=== PATIENT | female | born 1945 | race Caucasian/White ===

== ENCOUNTER 2017-05-01 15:32 | Emergency (ER) | payer OTHER ==
[~2017-05-01] VITALS: Ht 167.6 cm; Wt 71.3 kg
[2017-05-01 15:43] VITALS: Ht 167.6 cm; Wt 71.3 kg
--- NOTE | 2017-05-01 16:12 | EMERGENCY ROOM VISIT NOTE ---
ED Visit Note First contact with patient: 15:49 I did evaluate and examine this patient myself. I did guide management for the patient. I agree with the APC's assessment as discussed. Please see the APC's dictation for further details. The patient has a laceration above the right brow. She denies any significant headache. I did review the CT scan of her orbits. She declines tetanus immunization and states that she does not get immunizations for tetanus. She does have an obvious lens dislocation on examination and is only able to distinguish light with the right eye. She has increased IOP in that eye as well. Dr. Guerra of ophthalmology was consulted. He did see the patient in the emergency department and recommended transfer to a tertiary care facility for further care. The patient was transferred to [facility].
[2017-05-01] MEDS ORDERED: PROPARACAINE HCL 0.5% OP SOLN 15 ML BTL OP STA (16:16)
[2017-05-01] MEDS ORDERED: LIDOCAINE/EPINEPH/TETRACAINE 1 EA SYR EXT STA (16:16)
[2017-05-01] MEDS ORDERED: DIPHTHERIA/TETANUS/PERTUSSIS 0.5 ML SYR/VIAL IM. ONE (16:30)
[2017-05-01] MEDS ORDERED: XYLOCAINE 1%/SOD BICARB 20 ML VIAL INFIL ONE (16:30)
--- NOTE | 2017-05-01 17:02 | DIAGNOSTIC IMAGING REPORT ---
CT orbits ORBITS/SELLA/TEMP WITHOUT CLINICAL HISTORY: EVAL TRAUMA/FRACTURE trauma. Pain. TECHNIQUE: Transaxial acquisition of multi axial reformatted images COMPARISON STUDY: None FINDINGS: Mild right preorbital soft tissue edema. All major osseous structures are intact. Orbital margins are intact. The retroseptal structures are symmetric. Bulges symmetric. All major sinuses are intact. Orbital floors and orbital margins show no evidence for disruption. IMPRESSION: Mild soft tissue edema anterior to the right orbit. Otherwise negative study. No acute bony abnormality. Electronically signed by: Donny Marques M.D. 05/01/2017 5:00 PM Dictated Date/Time: 05/01/2017 4:57 PM
[2017-05-01] MEDS ORDERED: AcetaZOLAMIDE 250 MG TAB PO STA (18:37)
[2017-05-01] MEDS ORDERED: BRIMONIDINE TART 0.2% OP SOLN PER DROP CHARGE OPR STA (18:37)
[2017-05-01] MEDS ORDERED: TIMOLOL MALEATE 0.5% OP SOLN 5 ML BTL OPR STA (18:37)
--- NOTE | 2017-05-01 19:12 | EMERGENCY ROOM VISIT NOTE ---
ED Visit Note First contact with patient: 15:49 CHIEF COMPLAINT: Eyebrow laceration History of present illness: Patient is an otherwise healthy 72-year-old white female who presents emergency department for evaluation of a laceration above her right eye. She was playing baseball with her grandson, and had her back turned while he was batting. He hit the ball, and she turned, the ball struck her in the right eye, causing the laceration described below. She notes blurry vision in her right eye. She states that it feels like she has a "glare" over her right eye. She wears reading glasses only, have Lasik vision correction performed about 10 years ago. She denies any headache, lightheadedness or dizziness. There was no loss of consciousness. She has had ice on her face since the injury. She rates her discomfort a 2/10. REVIEW OF SYSTEMS: Review of systems as per HPI. All other systems reviewed were negative. 10 systems reviewed. PMH: Electronic medical records are reviewed and summarized as above/below. See Problem List. Her tetanus is not up-to-date. SOCIAL HISTORY: Patient lives at home with her . She does not smoke or drink alcohol. PHYSICAL EXAM: Vital Signs: Reviewed Nurse's notes. CONSTITUTIONAL: Patient is a pleasant well-appearing 72-year-old white female who is awake and alert and in no acute distress. VISUAL ACUITY: 20/25 in the left eye, patient is completely unable to view the Snellen chart through the right eye. EYES: Right pupil is fixed and dilated. Left pupil is round, reactive to light. EOMs are intact. She has slight tenderness over the superior orbital rim. Intraocular pressure averaged 17.3 in the left eye and 54.8 in the right eye. Under slit-lamp exam, patient did have evidence for a small, linear hyphema. No corneal uptake of fluorescein. EARS: Tympanic membranes intact, not inflamed, have normal contour. External canals clear. MOUTH: Mucous membranes moist, no lesions, tongue and gums appear normal. THROAT: No pharyngeal injection, exudates, or tonsillar hypertrophy. Airway is patent. INTEGUMENTARY: The patient has a 2 cm laceration through the lateral right eyebrow. EMERGENCY DEPARTMENT COURSE: The patient was seen and evaluated as above. Tetanus was updated. She declined pain medication. Slit exam was performed. Orbital CT was obtained, with no evidence for fracture. Wound was repaired. Given the ocular injury, consultation was placed with Dr. Napier of ophthalmology who evaluated the patient. 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 He felt that she would require urgent surgical intervention, and has recommended transfer to a tertiary care center. Patient has requested [facility] and [place]. Per Dr. Napier's instructions, patient was given Diamox 250 mg orally now and then every 8 hours, Timolol 0.5% one drop now and then every 12 hours and Brimonidine 0.2% one drop now and then every 8 hours. He also suggested Lumigan 1 drop now and then every 12 hours, but this medication is not available at our facility. Consent to transfer was obtained. The patient will go by private vehicle. All questions were answered, and the patient was discharged with her in good condition. PROCEDURE NOTE: The wound was anesthetized with LET gel for over 30 minutes. The affected area was cleaned with Betadine and irrigated with saline. The laceration was explored to its base. There was no foreign body in the wound. The skin was closed with 6, 6-0 nylon interrupted sutures. Bacitracin was applied. CT orbits ORBITS/SELLA/TEMP WITHOUT CLINICAL HISTORY: EVAL TRAUMA/FRACTURE trauma. Pain. TECHNIQUE: Transaxial acquisition of multi axial reformatted images COMPARISON STUDY: None FINDINGS: Mild right preorbital soft tissue edema. All major osseous structures are intact. Orbital margins are intact. The retroseptal structures are symmetric. Bulges symmetric. All major sinuses are intact. Orbital floors and orbital margins show no evidence for disruption. IMPRESSION: Mild soft tissue edema anterior to the right orbit. Otherwise negative study. No acute bony abnormality. Problem List Medical Problems: (1) Kidney stones Status: Resolved Current/Historical Medications No Active Prescriptions or Reported Meds Allergies Coded Allergies: Nitrofurantoin (Verified Allergy, Mild, ITCHY, 05/01/17) Uncoded Allergies: PENICILLIN (Allergy, Severe, HIVES "EXTERNAL AND INTERNAL", 05/01/17) Vital Signs Date Time Temp Pulse Resp B/P (MAP) Pulse Ox O2 Delivery O2 Flow Rate FiO2 05/01/17 19:53 78 18 153/85 98 Room Air 05/01/17 19:53 37.1 78 18 153/85 98 05/01/17 18:53 78 18 153/85 98 05/01/17 18:06 69 16 145/84 94 05/01/17 15:43 37.1 97 20 152/72 96 Room Air Medications Administered Medications (Trade) Dose Ordered Sig/Noel Route Start Time Stop Time Status Last Admin Dose Admin Diphtheria/ Pertussis/Tetanus Vacc (Adacel Inj) 0.5 ml ONCE ONCE IM. 05/01/17 16:30 05/01/17 16:31 DC 05/01/17 16:42 0.5 ML Tetracaine/ Epinephrine/ Lidocaine (L.e.t. Gel 4%/ 1:100/0.5%) 1 ea UD STAT EXT 05/01/17 16:16 05/01/17 16:18 DC 05/01/17 16:40 1 EA Acetazolamide (Diamox Tab) 250 mg NOW STAT PO 05/01/17 18:37 05/01/17 18:41 DC 05/01/17 19:16 250 MG Timolol Maleate (Timoptic 0.5% Oph Soln) 1 drops NOW STAT OPR 05/01/17 18:37 05/01/17 18:41 DC 05/01/17 19:16 1 DROPS Brimonidine Tartrate (Alphagan 0.2% Soln) 1 drops NOW ONCE OPR 05/01/17 19:15 05/01/17 19:16 DC 05/01/17 19:16 1 DROPS Departure Information Impression Primary Impression: Traumatic dislocation of lens Additional Impressions: Elevated IOP Eyebrow laceration Dispostion Transfer Acute Care Facility Prescriptions No Active Prescriptions or Reported Meds Referrals No Doctor, Assigned (PCP) Patient Instructions [facility] Additional Instructions Go directly to the emergency department at [facility] in [place] for evaluation. Nothing to eat or drink. Problem Qualifiers
[2017-05-01] MEDS ORDERED: BRIMONIDINE TARTRATE 0.2% 5ML OPR ONE (19:15)
--- NOTE | 2017-05-01 19:24 | OPHTHALMOLOGY CONSULTATION ---
DATE OF CONSULTATION: 05/01/2017 CHIEF COMPLAINT: Right eye trauma. HISTORY OF PRESENT ILLNESS: The patient is a very pleasant 72-year-old woman who was struck above the right eye with a baseball earlier today. She presented to the Emergency Room and was evaluated and found to have a fixed dilated pupil on the right and a right brow laceration. Imaging did not reveal any fractures. However, the pressure check was 54 in the right eye. The patient reports significant loss of vision in the right eye. She denies any significant pain. She denies any double vision. PAST MEDICAL HISTORY: The patient had LASIK done in both eyes. She does not wear glasses except for reading. ALLERGIES: PENICILLIN. PHYSICAL EXAMINATION: Visual acuity on a near card without correction was 20/800 in the right eye and 20/50 in the left. Pupillary exam showed a fixed dilated pupil on the right. The left pupil reacted normally. There was perhaps a mild afferent pupillary defect by reverse on the right side. Versions were normal. There was a brow laceration which had been sutured prior to my arrival. The lids otherwise are mildly edematous on the right. The cornea had mild diffuse edema. At the slit lamp the anterior chamber was completely filled with the crystalline lens. The iris was stretched around the equator of the lens and portions of the iris were behind the lens and portions of the iris were flat against the cornea peripherally. Fundus examination showed a small amount of vitreous hemorrhage. The retinal details were somewhat blurry due to the anterior segment pathology but the retinal periphery appeared unremarkable. The optic nerve had a cup to disc ratio of 0.2 on the right. The remainder of the exam was normal including no significant subconjunctival hemorrhage with a clear sclerae. In the left eye, there was mild nuclear sclerosis and the remainder of the exam was unremarkable. IMPRESSION: Ms. Orosco has a traumatic dislocation of her lens into the anterior chamber. This movement of the lens is causing obstruction of the normal angle architecture and resulting in high pressure. It is going to be very difficult to control this pressure without surgical correction of the displaced lens. Most likely this is going to require a vitrectomy and lensectomy. I have recommended transferring the patient to a fully staffed eye center such as [facility] in [place] or [facility] where they have both anterior segment and retinal specialists available to cooperate for her urgent surgical intervention. In the meantime, I have recommended a barrage of medications in order to try and temporarily lower her pressure in anticipation of surgery. I would recommend Diamox 250 mg every 12 hours. In addition, I have recommended timolol 0.5% drops 1 drop every 12 hours, brimonidine 0.2% drops every 8 hours, and Lumigan drops every 12 hours. Please call [phone] with any questions. [facility]
[2017-05-01 19:53] VITALS: BP 153/85; PULSE 78; TEMP 37.1; O2SAT 98
== END 2017-05-01 19:54 | disposition short-term general hospital (02) ==
LOC: C.EDB 15:33 → C.EDD 19:54
DX: S05.8X1A Other injuries of right eye and orbit, initial encounter (principal); H40.001 Preglaucoma, unspecified, right eye; S01.111A Laceration without foreign body of right eyelid and periocular area, initial encounter; W21.03XA Struck by baseball, initial encounter; Z23 Encounter for immunization

== ENCOUNTER 2017-12-29 13:59 | Emergency (ER) | payer OTHER ==
[~2017-12-29] VITALS: Ht 167.6 cm; Wt 70.0 kg
[2017-12-29 14:12] VITALS: Ht 167.6 cm; Wt 70.0 kg
[2017-12-29] MEDS ORDERED: SODIUM CHLORIDE 0.9% 1000ML 1,000 ML IV STA (14:31)
[2017-12-29] MEDS ORDERED: ONDANSETRON INJ 2 MG/ML 2 ML VIAL IV PRN (14:45)
[2017-12-29] MEDS ORDERED: FENTANYL CITRATE INJ 50 MCG/1 ML 2 ML VIAL IV PRN (14:45)
[2017-12-29 14:56] LABS: BASO % 0.1 %; BASO ABS # 0.01 K/uL (0-0.2); EOS % 0.5 %; EOS ABS # 0.04 K/uL (0-0.5); HEMATOCRIT 39.5 % (37-47); HEMOGLOBIN 13.6 g/dL (12.0-16.0); IG# 0.01 K/uL (0.00-0.02); LYMPH % 8.3 %; LYMPH ABS # 0.61 K/uL (1.2-3.4); MEAN CELL VOLUME 89.8 fL (80-100); MEAN CORPUSCULAR HEMOGLOBIN 30.9 pg (25-34); MEAN CORPUSCULAR HGB CONC 34.4 g/dl (32-36); MEAN PLATELET VOLUME 9.4 fL (7.4-10.4); MONO % 8.1 %; NEUT % 82.9 %; NEUT ABS # 6.11 K/uL (1.4-6.5); PLATELET COUNT 157 K/uL (130-400); RED CELL DISTRIBUTION WIDTH CV 13.3 % (11.5-14.5); RED CELL DISTRIBUTION WIDTH SD 43.9 fL (36.4-46.3); WHITE BLOOD COUNT 7.38 K/uL (4.8-10.8)
[2017-12-29] MEDS ORDERED: OPTIRAY 320 IV PRN (15:00)
--- NOTE | 2017-12-29 15:01 | EMERGENCY ROOM VISIT NOTE ---
ED Visit Note First contact with patient: 14:20 CHIEF COMPLAINT: Right flank pain HISTORY OF PRESENTING ILLNESS: This is a 72-year-old female who presents to the emergency department with complaint of right flank pain for the past 5 days. She states that she saw her primary care provider last week on [place] when her symptoms had started and they noted blood in her urine. She states that they suspected she has a kidney stone, they encouraged her to take Aleve for the pain and to drink lots of fluids to hopefully help pass the stone. She states that her pain and symptoms have been getting progressively worse, she has been having severe nausea and vomiting since yesterday and today she is vomiting bright yellow bile. She denies any fevers but states she has had some chills today as well. She reports a history of a kidney stone 40 years ago but has not had any ongoing issues of kidney stones recently. She states that the pain is intermittent and starts in her right middle back and wraps around to the flank and right lower quadrant abdomen. Today she has also developed some dysuria. She denies any headaches, neck pain, chest pain, shortness of breath, dizziness or syncope, bloody or black stools, or rash. REVIEW OF SYSTEMS: A complete 10 point review of systems was reviewed with the patient with pertinent positives and negatives as per history of present illness. All else were negative. PAST MEDICAL HISTORY: Reviewed in chart. SOCIAL HISTORY: Lives at home with her significant other. She denies tobacco use, alcohol use, or recreational drug use. ALLERGIES: Reviewed in chart. PHYSICAL EXAM: CONSTITUTIONAL: Pleasant and cooperative. No acute distress. Mildly dehydrated , but otherwise well appearing and well nourished. HEENT: Normocephalic, atraumatic. Pupils equal, round and reactive to light, EOMI. TMs normal. Pharynx normal. Tacky mucous membranes. NECK: Supple, full active range of motion without discomfort. RESPIRATORY: Clear to auscultation bilaterally with no wheezing, crackles, rhonchi or stridor. Equal expansion bilaterally. CARDIOVASCULAR: Regular rate and rhythm with no murmurs, rubs or gallops. Normal peripheral perfusion. No edema. GASTROINTESTINAL: Soft, moderately tender in the right flank and right lower quadrant, nondistended. No rebound tenderness or guarding. Positive right CVA tenderness. No palpable masses or HSM. Bowel sounds present in all quadrants. MUSCULOSKELETAL: Full range of motion of all joints without discomfort. INTEGUMENTARY: No rash or other significant dermatologic conditions noted. NEUROLOGIC: Alert and oriented X 4 with normal affect. Normal strength and sensation in all 4 extremities. No focal neurologic deficits noted. Normal speech. Normal gait observed. ED COURSE AND MEDICAL DECISION MAKING: CC: Patient presenting with complaint of right flank pain, nausea and vomiting, hematuria DIFFERENTIAL DIAGNOSIS: Includes, but not limited to ureteral stone, UTI, pyelonephritis, infected stone, small bowel obstruction, ileus, gastroenteritis , diverticulitis, appendicitis, cholecystitis, cholelithiasis, pancreatitis, dehydration, among others. INTERPRETATION OF LABS: No leukocytosis, no anemia, no significant electrolyte abnormalities, normal renal function, normal liver enzymes and lipase. UA shows blood, negative for infection. IMAGING: CT OF THE ABDOMEN AND PELVIS WITH CONTRAST CLINICAL HISTORY: Right-sided back pain. COMPARISON STUDY: None. TECHNIQUE: Following IV administration of 110 mL of Optiray-320, axial images of the abdomen and pelvis were obtained from the lung bases to the proximal femurs. Images were reviewed in the axial, sagittal, and coronal planes. IV contrast was administered without complication. A dose lowering technique was utilized adhering to the principles of ALARA. CT DOSE: 292.84 mGy.cm FINDINGS: Lung bases are clear. Incidental note is made of a 1.3 cm right hepatic lobe cyst. The spleen, adrenal glands and pancreas are unremarkable. There is no biliary or pancreatic ductal dilatation. There is no evidence for a bowel obstruction. Extensive left colon diverticulosis is noted without evidence for acute diverticulitis. The appendix is normal. There is no lymphadenopathy. Bilateral parapelvic cysts are noted. There is moderate renal cortical thinning. Note is made of a 4 mm calculus at the right ureterovesical junction with resultant right hydroureteronephrosis. The degree of hydronephrosis is difficult to assess given parapelvic cyst however is likely at least moderate in degree. Hyperdense densities within the left collecting system likely reflect excreted contrast. No suspicious osseous lesions are present. A 4.5 cm hypodense mass within the posterior aspect the uterine body is noted. IMPRESSION: 1. 4 mm right ureterovesical junction calculus with resultant right hydroureteronephrosis. Degree of hydronephrosis difficult to assess given parapelvic cysts however likely at least moderate. 2. Extensive colonic diverticulosis without evidence for acute diverticulitis. Normal appendix. 3. 4.5 cm hypodense posterior uterine mass which likely reflects a fibroid. However, a follow-up nonemergent pelvic ultrasound is recommended for confirmation. EKG: Shows normal sinus rhythm with a rate of 74 bpm, left axis deviation with nonspecific T wave changes in the anterior and lateral leads when compared to previous EKG of 10/21/1998 by my interpretation. MEDICATION RECONCILIATION: I attest that I have personally reviewed the patient 's current medication list. INITIAL VITAL SIGNS REVIEW: I reviewed the patient's initial vital signs and interpret them as follows: T: Afebrile; BP: Hypertensive; HR: Within normal limits; RR: Within normal limits; Pulse Ox: Within normal limits on room air. Blood pressure screening: The patient was found to have an elevated blood pressure and was referred to their primary doctor for recheck and further treatment. SUMMARY: Patient was evaluated at bedside, history and physical exam performed. Patient is alert and oriented, no acute distress, resting calmly in stretcher. Patient has right CVA tenderness and right lower abdominal tenderness to palpation. Patient reports that her pain is well controlled at this time. Orders were placed at bedside for labs, UA, IV fluids for hydration, IV fentanyl and Zofran for pain and nausea, CT abdomen/pelvis with IV contrast to evaluate for ureteral stone and other acute abdominal abnormalities. Patient discussed with Dr. Castellanos, who agrees with my assessment and plan. Labs and imaging reviewed as above, CT notable for 4 mm distal obstructing ureteral stone. I spoke on the phone with BRYANT Ndiaye with urology, who agrees to establish a follow-up appointment for the patient. Patient reassessed multiple times throughout ED stay, she reports that her pain has been well controlled, she denies any persistent nausea and has tolerated oral fluids. Patient was updated on all results and plan for discharge, encouraged her to keep her scheduled appointment with urology. Patient was also made aware of the uterine mass and need to follow up with her primary care provider. Rx for oxycodone, naproxen, Zofran, and Flomax sent to patient's pharmacy. Patient was given her first dose of Flomax and a urine straining kit in the ED. Patient was also given strict return precautions should her symptoms worsen, she verbalized understanding. Patient was discharged home in stable condition and ambulatory. Problem List Medical Problems: (1) Kidney stones Status: Resolved Current/Historical Medications Scheduled Naproxen (Naprosyn), 500 MG PO BID Ondasetron Odt (Zofran Odt), 4 MG SL Q6H Tamsulosin Hcl (Flomax), 0.4 MG PO DAILY Scheduled PRN Oxycodone Ir (Roxicodone Ir), 1-2 TAB PO Q6H PRN for Severe Pain Allergies Coded Allergies: Nitrofurantoin (Verified Allergy, Mild, ITCHY, 12/29/17) Uncoded Allergies: PENICILLIN (Allergy, Severe, HIVES "EXTERNAL AND INTERNAL", 05/01/17) Vital Signs Date Time Temp Pulse Resp B/P (MAP) Pulse Ox O2 Delivery O2 Flow Rate FiO2 12/29/17 16:59 86 18 151/87 100 Room Air 12/29/17 15:40 36.7 91 18 147/88 96 Room Air 12/29/17 15:09 74 12/29/17 14:12 36.5 80 16 147/90 98 Room Air Laboratory Results 12/29/17 14:46 Red Blood Count 4.40, Mean Corpuscular Volume 89.8, Mean Corpuscular Hemoglobin 30.9, Mean Corpuscular Hemoglobin Concent 34.4, Mean Platelet Volume 9.4, Neutrophils (%) (Auto) 82.9, Lymphocytes (%) (Auto) 8.3, Monocytes (%) (Auto) 8.1, Eosinophils (%) (Auto) 0.5, Basophils (%) (Auto) 0.1, Neutrophils # (Auto) 6.11, Lymphocytes # (Auto) 0.61, Monocytes # (Auto) 0.60, Eosinophils # (Auto) 0.04, Basophils # (Auto) 0.01 12/29/17 14:46 Test 12/29/17 14:45 12/29/17 14:46 Urine Color YELLOW Urine Appearance CLEAR (CLEAR) Urine pH 5.0 (4.5-7.5) Urine Specific Matthews 1.011 (1.000-1.030) Urine Protein NEG (NEG) Urine Glucose (UA) NEG (NEG) Urine Ketones TRACE (NEG) Urine Occult Blood 2+ (NEG) Urine Nitrite NEG (NEG) Urine Bilirubin NEG (NEG) Urine Urobilinogen NEG (NEG) Urine Leukocyte Esterase SMALL (NEG) Urine WBC (Auto) 5-10 /hpf (0-5) Urine RBC (Auto) 0-4 /hpf (0-4) Urine Hyaline Casts (Auto) 0 /lpf (0-5) Urine Epithelial Cells (Auto) >30 /lpf (0-5) Urine Bacteria (Auto) NEG (NEG) White Blood Count 7.38 K/uL (4.8-10.8) Red Blood Count 4.40 M/uL (4.2-5.4) Hemoglobin 13.6 g/dL (12.0-16.0) Hematocrit 39.5 % (37-47) Mean Corpuscular Volume 89.8 fL (80-100) Mean Corpuscular Hemoglobin 30.9 pg (25-34) Mean Corpuscular Hemoglobin Concent 34.4 g/dl (32-36) Platelet Count 157 K/uL (130-400) Mean Platelet Volume 9.4 fL (7.4-10.4) Neutrophils (%) (Auto) 82.9 % Lymphocytes (%) (Auto) 8.3 % Monocytes (%) (Auto) 8.1 % Eosinophils (%) (Auto) 0.5 % Basophils (%) (Auto) 0.1 % Neutrophils # (Auto) 6.11 K/uL (1.4-6.5) Lymphocytes # (Auto) 0.61 K/uL (1.2-3.4) Monocytes # (Auto) 0.60 K/uL (0.11-0.59) Eosinophils # (Auto) 0.04 K/uL (0-0.5) Basophils # (Auto) 0.01 K/uL (0-0.2) RDW Standard Deviation 43.9 fL (36.4-46.3) RDW Coefficient of Variation 13.3 % (11.5-14.5) Immature Granulocyte % (Auto) 0.1 % Immature Granulocyte # (Auto) 0.01 K/uL (0.00-0.02) Anion Gap 9.0 mmol/L (3-11) Est Creatinine Clear Calc Drug Dose 37.2 ml/min Estimated GFR () 49.6 Estimated GFR (Non- 42.8 BUN/Creatinine Ratio 16.2 (10-20) Calcium Level 9.2 mg/dl (8.5-10.1) Total Bilirubin 0.9 mg/dl (0.2-1) Direct Bilirubin 0.2 mg/dl (0-0.2) Aspartate Amino Transf (AST/SGOT) 9 U/L (15-37) Alanine Aminotransferase (ALT/SGPT) 13 U/L (12-78) Alkaline Phosphatase 81 U/L (45-117) Total Protein 7.8 gm/dl (6.4-8.2) Albumin 4.0 gm/dl (3.4-5.0) Lipase 141 U/L (73-393) Medications Administered Medications (Trade) Dose Ordered Sig/Noel Route Start Time Stop Time Status Last Admin Dose Admin Sodium Chloride 1,000 ml @ 999 mls/hr Q1H1M STAT IV 12/29/17 14:31 12/29/17 15:31 DC 12/29/17 14:57 999 MLS/HR Ondansetron HCl (Zofran Inj) 4 mg ONE PRN IV 12/29/17 14:45 12/29/17 18:13 DC 12/29/17 14:57 4 MG Fentanyl Citrate (Fentanyl Inj) 50 mcg Q30M PRN IV 12/29/17 14:45 12/29/17 18:13 DC 12/29/17 14:57 50 MCG Departure Information Impression Primary Impression: Right distal ureteral calculus Additional Impression: Hydronephrosis of right kidney Dispostion Home / Self-Care Condition GOOD Prescriptions Ondasetron Odt (ZOFRAN ODT) 4 Mg Tab 4 MG SL Q6H for Nausea, #10 TAB Prov: Shayy Hernandez CRNP 12/29/17 Naproxen (Naprosyn) 500 Mg Tab 500 MG PO BID for 10 Days, #20 TAB Prov: Shayy Hernandez CRNP 12/29/17 Tamsulosin Hcl (FLOMAX) 0.4 Mg Cap 0.4 MG PO DAILY for 7 Days, #7 CAP Prov: Shayy Hernandez CRNP 12/29/17 Oxycodone Ir (Roxicodone Ir) 5 Mg Tab 1-2 TAB PO Q6H Y for Severe Pain, #20 TAB Prov: Shayy Hernandez CRNP 12/29/17 Referrals No Doctor, Assigned (PCP) Teri Jain CRNP Patient Instructions ED Stone Renal W Colic, ED Strainer Urine, My [facility] Additional Instructions You have been treated in the Emergency Department today for a Kidney Stone ( Nephrolithiasis). You have received pain medicine in the emergency department which impairs your ability to operate a vehicle. It is illegal for you to drive after receiving these medicines. You have been prescribed naproxen 500 mg, take 1 tablet every 12 hours for pain. This is an NSAID, do not take other NSAID medication such as Advil, Aleve , ibuprofen, Motrin, etc. while you are taking this medication. You have been prescribed oxycodone to be used for SEVERE pain control. This is a narcotic medication. You cannot drive or consume alcohol while on this medicine. This medicine should only be used for pain that cannot be controlled with [id number] pain medicines. You have been prescribed Zofran to be used for any nausea or vomiting. Take as prescribed. Additional you have been prescribed Flomax 0.4 mg to be taken ONCE daily. This medicine has been prescribed as it can help relax the smooth muscles of the urinary tract increasing transit time of the kidney stone. For pain control, you may also take Regular strength (325mg/tab) Tylenol ( acetaminophen) 2 tabs every 4-6 hours as needed. Do not exceed 1 10 tablets in a 24 hour period. Avoid taking more than 3000 mg of Tylenol per day. This includes any other sources of acetaminophen you may take on a regular basis. You have been provided a strainer and specimen collection cup. You should strain your urine to collect any passed stones. Your stones can be placed into the specimen cup and taken to your Urologist for further evaluation. You have been provided the contact information for the on-call Urologist. You have been set up with an appointment with the urologist for Wednesday, 01/03 at 1: 40PM. Please keep this appointment. There is a 4.5 cm mass on your uterus that was seen on your CT scan today. This is most likely a uterine fibroid. Please follow-up with your primary care provider to h be scheduled for a pelvic ultrasound to further evaluate this. Please return to the Emergency Department immediately if your symptoms worsen, including increasing pain, persistent vomiting and unable to keep anything down , fevers or chills, large amounts of blood in your urine, inability to urinate for more than 8 hours, or any other concerns. Problem Qualifiers
[2017-12-29 15:12] LABS: CALCIUM 9.2 mg/dl (8.5-10.1); CREATININE 1.24 mg/dl (0.60-1.20); POTASSIUM 3.9 mmol/L (3.5-5.1)
[2017-12-29 15:15] LABS: TOTAL PROTEIN 7.8 gm/dl (6.4-8.2)
[2017-12-29 15:40] VITALS: TEMP 36.7
--- NOTE | 2017-12-29 15:47 | DIAGNOSTIC IMAGING REPORT ---
CT OF THE ABDOMEN AND PELVIS WITH CONTRAST CLINICAL HISTORY: Right-sided back pain. COMPARISON STUDY: None. TECHNIQUE: Following IV administration of 110 mL of Optiray-320, axial images of the abdomen and pelvis were obtained from the lung bases to the proximal femurs. Images were reviewed in the axial, sagittal, and coronal planes. IV contrast was administered without complication. A dose lowering technique was utilized adhering to the principles of ALARA. CT DOSE: 292.84 mGy.cm FINDINGS: Lung bases are clear. Incidental note is made of a 1.3 cm right hepatic lobe cyst. The spleen, adrenal glands and pancreas are unremarkable. There is no biliary or pancreatic ductal dilatation. There is no evidence for a bowel obstruction. Extensive left colon diverticulosis is noted without evidence for acute diverticulitis. The appendix is normal. There is no lymphadenopathy. Bilateral parapelvic cysts are noted. There is moderate renal cortical thinning. Note is made of a 4 mm calculus at the right ureterovesical junction with resultant right hydroureteronephrosis. The degree of hydronephrosis is difficult to assess given parapelvic cyst however is likely at least moderate in degree. Hyperdense densities within the left collecting system likely reflect excreted contrast. No suspicious osseous lesions are present. A 4.5 cm hypodense mass within the posterior aspect the uterine body is noted. IMPRESSION: 1. 4 mm right ureterovesical junction calculus with resultant right hydroureteronephrosis. Degree of hydronephrosis difficult to assess given parapelvic cysts however likely at least moderate. 2. Extensive colonic diverticulosis without evidence for acute diverticulitis. Normal appendix. 3. 4.5 cm hypodense posterior uterine mass which likely reflects a fibroid. However, a follow-up nonemergent pelvic ultrasound is recommended for confirmation. Electronically signed by: Meng Young M.D. 12/29/2017 3:45 PM Dictated Date/Time: 12/29/2017 3:36 PM
[2017-12-29] MEDS ORDERED: TAMS0.4C38 PO (16:24)
[2017-12-29] MEDS ORDERED: OXYC1TAB3 PO (16:24)
[2017-12-29] MEDS ORDERED: NAPR-1169 PO (16:24)
[2017-12-29] MEDS ORDERED: ONDA4TAB10 SL (16:25)
[2017-12-29 16:59] VITALS: BP 151/87; PULSE 86; O2SAT 100
[2017-12-29] MEDS ORDERED: TAMSULOSIN HCL 0.4 MG CAP PO ONE (17:00)
== END 2017-12-29 17:49 | disposition home or self-care (01) ==
LOC: C.EDB 14:01 → C.EDA 17:49
DX: N20.1 Calculus of ureter (principal); N13.30 Unspecified hydronephrosis

== ENCOUNTER 2020-01-07 09:28 | Inpatient (IN) ==
--- OUTSIDE RECORDS SUMMARY | 2020-01-07 09:31 | External Medical Summary | Continuity of Care Document ---
:1945 Author Name Janneth Reinoso, Provider Address Unavailable Unavailable , Care Team Providers Name Role Phone Unavailable Unavailable Unavailable MAINALI, FARZANA Unavailable Unavailable Problems Active medical history not documented Allergies and Adverse Reactions Allergy history not documented Medications Medications not documented Procedures Procedures not documented Immunizations Immunizations not documented Plan of Treatment Planned Observations Planned Goals not documented Results No Known Results Results not documented
[2020-01-07] MEDS ORDERED: IBUPROFEN 200 MG TAB PO STA (09:49)
[2020-01-07] MEDS ORDERED: TRAMADOL HCL 50 MG TABLET PO STA (09:49)
[2020-01-07] MEDS ORDERED: LIDOCAINE 5% 1 PATCH TD STA (09:49)
[2020-01-07] MEDS ORDERED: ACETAMINOPHEN 325 MG TAB PO STA (09:49)
--- NOTE | 2020-01-07 10:41 | XRay Report ---
XR hip LT 2V w pelvis CLINICAL HISTORY: pain in posterior thigh; neg US COMPARISON: None. DISCUSSION: The bones and joint spaces appear intact. There is no evidence of fracture, dislocation o r bony disease. There is no evidence for soft tissue swelling. IMPRESSION: Negative study. ACT 112: Negative or not required by law. The above report was generated using voice recognition software. It may contain grammatical, syntax or spelling errors. Electronically signed by: Donny Marques M.D. 01/07/2020 10:40 AM
--- NOTE | 2020-01-07 10:42 | XRay Report ---
XR knee LT 3V CLINICAL HISTORY: pain pain COMPARISON: None. DISCUSSION: The bones and joint spaces appear intact. There is no evidence of fracture, dislocation o r bony disease. There is no evidence for soft tissue swelling. IMPRESSION: Negative study. ACT 112: Negative or not required by law. The above report was generated using voice recognition software. It may contain grammatical, syntax or spelling errors. Electronically signed by: Donny Marques M.D. 01/07/2020 10:40 AM
--- NOTE | 2020-01-07 10:43 | XRay Report ---
XR tibia fibula LT 2V CLINICAL HISTORY: pain COMPARISON: None. DISCUSSION: The bones and joint spaces appear intact. There is no evidence of fracture, dislocation o r bony disease. There is no evidence for soft tissue swelling. IMPRESSION: Negative study. ACT 112: Negative or not required by law. The above report was generated using voice recognition software. It may contain grammatical, syntax or spelling errors. Electronically signed by: Donny Marques M.D. 01/07/2020 10:42 AM
--- NOTE | 2020-01-07 10:43 | XRay Report ---
XR femur LT 2V routine CLINICAL HISTORY: pain COMPARISON: None. DISCUSSION: The bones and joint spaces appear intact. There is no evidence of fracture, dislocation o r bony disease. There is no evidence for soft tissue swelling. IMPRESSION: Negative study. ACT 112: Negative or not required by law. The above report was generated using voice recognition software. It may contain grammatical, syntax or spelling errors. Electronically signed by: Donny Marques M.D. 01/07/2020 10:41 AM
[2020-01-07 12:58] LABS: Basophils # (auto) 0.01 K/uL (0-0.2); Basophils % (auto) 0.3 %; Eosinophils # (auto) 0.05 K/uL (0-0.5); Eosinophils % (auto) 1.5 %; Hematocrit (blood only) 39.5 % (37-47); Hemoglobin 13.1 g/dL (12.0-16.0); Lymphocytes # (auto) 0.66 K/uL (1.2-3.4); Lymphocytes % (auto) 19.2 %; Mean Corpuscular Hemoglobin 30.1 pg (25-34); Mean Corpuscular Hgb Conc 33.2 g/dL (32-36); Mean Corpuscular Volume 90.8 fL (80-100); Mean Platelet Volume 9.7 fL (7.4-10.4); Monocytes # (auto) 0.28 K/uL (0.11-0.59); Monocytes % (auto) 8.2 %; Neutrophils # (auto) 2.43 K/uL (1.4-6.5); Neutrophils % (auto) 70.8 %; Platelet Count 150 K/uL (130-400); RDW Coefficient of Variation 13.6 % (11.5-14.5); RDW Standard Deviation 44.9 fL (36.4-46.3); Red Blood Count 4.35 M/uL (4.2-5.4); White Blood Count 3.43 K/uL (4.8-10.8)
--- NOTE | 2020-01-07 13:01 | History & Physical Report ---
Date of Service January 07, 2020 Assessment & Plan (1) Lower extremity pain, left: Acute exacerbation of ongoing issue - no clear inciting event other than when she turned over in bed last night and noted a "pop" with worsening of pain. - Labs from ED pending - added CRP. - Consult orthopedics for additional recommendations - Knee immobilizer placed in ED - will continue for now - Tylenol prn for pain for now (2) Ambulatory dysfunction: Due to #1 - Consult PT/OT - failed ambulatory trial in ED. May need to consider rehab placement pending results of these evaluations. Pt prefers to avoid if possible. - Fall precautions while admitted - Weightbearing as tolerated (3) Ocular hypertension of right eye: - Continue outpatient Cosopt drops - per last ophtho note in Oct, condition is stable Patient seen and reviewed with collaborating physician, Dr. Ko. Plan of care discussed and as outlined above. Reviewed with patient and her at the bedside. All questions were answered. Swapnil Matias PA-C History of Present Illness Chief Complaint: left leg pain Primary Care Provider: Essie Kruger MD This is a 74 y/o female with a PMH of right rotator cuff surgery who presents to the ED today with progressive LLE pain and resultant ambulatory dysfunction. Pt reports a somewhat insidious onset of symptoms, starting with left lower extremity discomfort sometime in November. Initially symptoms were mild, "like a tendon was tight" so she tried stretching exercises to help. Over the past 4-5 days, the pain has been worsening such that she is using a cane to help her walk but "using it is a prop while I drag my leg along" as the symptoms are worse with weight bearing. She denies any numbness or tingling, no sensation that the knee or leg is going to give out on her. She denies any specific injury or fall that incited the symptoms. She was seen in her PCP office for these symptoms on Wednesday (two days ago) and had a LLE duplex that was negative for DVT, no Brooks's cyst or other abnormalities noted in report. She tried ice for symptoms without relief. Has not tried heat. She has been using two Aleve up to a couple times a day for pain with only partial relief. Last night, she attempted to turn over in bed and felt a sharp pain and heard a pop in her left knee. Since then, the pain in the back of the left knee has been significantly worse and she is unable to bear weight, so she came to the ED today. In the ED, x-rays were negative but patient failed a ambulatory trial so she has been referred for admission for PT/OT evaluation, orthopedic evaluation, and potential rehab placement pending these evaluations. Allergies Allergy/AdvReac Type Severity Reaction Status Date / Time oxycodone Allergy Intermediate fainted Unverified 01/07/20 10:43 nitrofurantoin Allergy Mild ITCHY Verified 12/22/18 07:41 PENICILLIN Allergy Severe HIVES Uncoded 12/22/18 07:41 "EXTERNAL AND INTERNAL" Home Medications Home Medications Medication Instructions Recorded Confirmed Type dorzolamide 1 drp OPR BID 12/08/18 01/07/20 History Past Med/Surg History Medical History (Updated 01/07/20 @ 13:20 by Kiesha Matias PA-C) Kidney stones Nausea and vomiting after administration of anesthetic agent Ocular hypertension of right eye Surgical History History of colonoscopy History of eye surgery right eye x2 "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" History of repair of right rotator cuff History of tonsillectomy and adenoidectomy History of tooth extraction all upper teeth and couple of bottom S/P LASIK (laser assisted in situ keratomileusis) of both eyes Status post wrist surgery left Family History Other No family history of adverse response to anesthesia Social History Preferred Language: Puerto Rican Communication Ability: Effective 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 Beliefs That Will Affect Care: None marital status: Current Living Situation: Spouse Current Living Situation Comment: Home with current occupational status: retired Other Information That Helps Us Care for You: No Feels Safe at Home: Yes Smoking Status: Never smoker Do You Dip or Chew Tobacco: No ; Second Hand Exposure: No ; Tobacco Cessation Education Requested by Patient: No Hx Alcohol Use: No Hx Substance Use: No Review of Systems Review of Systems: All systems reviewed & are unremarkable except as noted in HPI & below Constitutional: no fever, no chills, no sweats, no fatigue, no anorexia and no weight loss Eyes: no diplopia and no worsening vision Ear, Nose, Mouth, Throat: no ear pain, no nasal congestion, no nasal discharge, no sore throat and no dysphagia Respiratory: no cough, no chest congestion, no dyspnea on exertion and no wheezing Cardiovascular: no chest pain, no palpitations, no lightheadedness, no syncope, no edema and no claudication Gastrointestinal: no abdominal pain, no heartburn, no nausea, no vomiting, no dysphagia and no melena Genitourinary: no dysuria, no urinary frequency, no urinary urgency, no urinary incontinence, no hematuria and no flank pain Musculoskeletal: as per Subjective / HPI; no back pain, no neck pain and no swelling Integumentary: no rash and no unusual bruising Neurologic: + headache(s) (mild yesterday but none today); no falls, no localized weakness, no tingling, no numbness, no seizure-like activity and no syncope Psychiatric: no depression and no abnormal sleep pattern Physical Exam Constitutional: WD/WN, vitals as above no acute distress Eyes: PERRL, conjunctivae normal, anicteric sclerae ENMT: external ear and nose normal, oropharynx normal Neck: trachea midline Respiratory: does not use accessory muscles Auscultation: lungs clear to a uscultation bilaterally; no rales, no rhonchi and no wheezes Cardiovascular: Rate/Rhythm: regular rate and regular rhythm Heart Sounds: no gallop, no murmur and no cardiac rub Vessels: no JVD and no carotid bruit Extremities: normal capillary refill; no pedal edema Gastrointestinal (Abdomen): Inspection/Auscultation: normal bowel sounds; abdomen not distended Percussion/Palpation: abdomen soft; abdomen nontender Musculoskeletal: Head/Neck/Chest: normocephalic, head atraumatic and neck supple Extremities: no cyanosis and no clubbing Left knee flexion limited to ~20 degrees due to pain. RLE strength 5/5, LLE strength 4/5 (pt reports mild pain with all movements except plantar flexion) No significant lower extremity edema No palpable mass in left popliteal fossa. +tenderness to palpation of left medial malleolus, left popliteal fossa Skin: no rashes, warm and dry no jaundice Neurologic: no focal motor deficits Speech / Cognition: normal speech Sensation to light touch grossly intact bilateral UE and LE Psychiatric: A+Ox3, euthymic affect Results & Data Vital Signs (Past 12 Hours) Vital Signs Temp Pulse Pulse Resp BP BP Pulse Ox 01/07/20 11:27 67 17 126/78 96 01/07/20 09:33 36.9 C 68 17 161/94 H 98 Laboratory Results Laboratory Results - last 24 hr 01/07/20 01/07/20 12:47 12:47 WBC 3.43 L RBC 4.35 Hgb 13.1 Hct 39.5 MCV 90.8 MCH 30.1 MCHC 33.2 RDW Std Deviation 44.9 RDW Coeff of Nissa 13.6 Plt Count 150 MPV 9.7 Immature Gran % (Auto) 0.0 Neut % (Auto) 70.8 Lymph % (Auto) 19.2 [place] % (Auto) 8.2 Eos % (Auto) 1.5 Baso % (Auto) 0.3 Immature Gran # (Auto) 0.00 Neut # (Auto) 2.43 Lymph # (Auto) 0.66 L [place] # (Auto) 0.28 Eos # (Auto) 0.05 Baso # (Auto) 0.01 Sodium Pending Potassium Pending Chloride Pending Carbon Dioxide Pending Anion Gap Pending BUN Pending Creatinine Pending Est Cr Clr Drug Dosing Pending Est GFR ( Amer) Pending Est GFR (Non-Af Amer) Pending BUN/Creatinine Ratio Pending Glucose Pending Calcium Pending C-Reactive Protein Pending Diagnostic Findings Left femur x-ray 01/07/2020 - IMPRESSION: Negative study. Left hip/pelvis x-ray 01/07/2020 - IMPRESSION: Negative study. Left knee x-ray 01/07/2020 - IMPRESSION: Negative study. Left tib/fib x-ray 01/07/2020 - IMPRESSION: Negative study. Medications Administered Discontinued Medications Acetaminophen (Tylenol) 650 mg PO NOW STA Stop: 01/07/20 09:50 Last Admin: 01/07/20 10:37 Dose: 650 mg Documented by: [id number] Ibuprofen (Advil) 400 mg PO NOW STA Stop: 01/07/20 09:50 Last Admin: 01/07/20 10:36 Dose: 400 mg Documented by: [id number] Lidocaine (Lidoderm 5%) 1 patch TD NOW STA Stop: 01/07/20 09:50 Last Admin: 01/07/20 10:37 Dose: 1 patch Documented by: [id number] Tramadol HCl (Ultram) 50 mg PO NOW STA Stop: 01/07/20 09:50 Last Admin: 01/07/20 10:37 Dose: 50 mg Documented by: [id number] Code Status & VTE Plan VTE Prophylaxis Plan VTE Prophylaxis will be ordered: Yes Supervising Physician Co-Signing Physician Notes HISTORY: Record reviewed. Patient interviewed and examined in ED. Care coordinated with Kiesha Matias PA-C. Please refer to her documentation for complete history. Briefly, 74 YO F who enjoys good health. Presented to ED with progressive LLE pain and difficulty ambulating. Venous duplex in clinic on 01/05 was negative for DVT or other findings. No trauma. EXAM: General- no distress Lungs- clear to auscultation; no respiratory distress Cardiovascular- RRR; no murmur; no gallop; no JVD; no pretibial edema; peripheral pulses intact; feet & toes warm with good capillary refill Abdomen- + bowel sounds, soft, nontender Extremities- no cyanosis; no calf tenderness; no effusion, erythema, deformity left knee Neuro- alert, oriented Skin- warm & dry DATA: 01/07/20 12:47 01/07/20 12:47 X-rays pelvis, L hip, L femur, L knee, L tibia/fibula unremarkable. ASSESSMENT AND PLAN: LLE pain, etiology uncertain. Analgesics PRN. PT / OT evals. Consult Ortho. Please refer to HILARY Matias's documentation for discussion of other issues.
[2020-01-07 13:16] LABS: Creatinine Clr Calc Pharmacy 44.3 ml/min; Est GFR (Non-African American) 62.1
[2020-01-07 13:18] LABS: C Reactive Protein 0.29 mg/dl (0-0.29)
[2020-01-07] MEDS ORDERED: BUPIVACAINE/EPINEPHRINE 0.25% 1:200,000 30 ML VIAL INFIL SCH (14:30)
[2020-01-07] MEDS ORDERED: TRIAMCINOLONE ACET 40 MG/ML VIAL IA SCH (14:30)
--- NOTE | 2020-01-07 15:11 | Emergency Department Note ---
Entered by Lauren Myers acting as a scribe for Shane Castellanos MD History of Present Illness General Chief complaint: Leg Injury/Pain Stated complaint: L leg pain Time Seen by Provider: 01/07/20 09:39 Source: patient Mode of arrival: wheelchair Limitations: no limitations History of Present Illness Onset (ago): week(s) 3 Location: lower extremity (left leg) Radiation: extremity Pain Consistency: + constant Maximum Pain Intensity: 4 Current Pain Intensity: 4 Relieved By: + movement (Aleve) Exacerbated By: + movement Treatments prior to arrival: none The patient is a 74 year old white female w/ PMHx of kidney stones who presents to the ED w/ CC of left leg pain that began 3 weeks ago. 3 days ago, the pain worsened to where she cannot bear weight on it. She rates her discomfort as a 4/10 in severity. The pain does radiate to other parts of the left leg occasionally, including the thigh and down to her foot. She notes she did hear a "pop" behind her left knee a few days ago. Any movement worsens her pain. Aleve has provided minimal relief, but she has not taken any yet today. The patient previously had rotator cuff surgery by Dr. Bear. Home Medications Home Medications Medication Instructions Recorded Confirmed Type dorzolamide 1 drp OPR BID 12/08/18 01/07/20 History Allergies Allergy/AdvReac Type Severity Reaction Status Date / Time oxycodone Allergy Intermediate fainted Unverified 01/07/20 10:43 nitrofurantoin Allergy Mild ITCHY Verified 12/22/18 07:41 PENICILLIN Allergy Severe HIVES Uncoded 12/22/18 07:41 "EXTERNAL AND INTERNAL" Past Med/Surg History Medical History (Updated 01/07/20 @ 13:20 by Kiesha Matias PA-C) Kidney stones Nausea and vomiting after administration of anesthetic agent Ocular hypertension of right eye Surgical History History of colonoscopy History of eye surgery right eye x2 "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" History of repair of right rotator cuff History of tonsillectomy and adenoidectomy History of tooth extraction all upper teeth and couple of bottom S/P LASIK (laser assisted in situ keratomileusis) of both eyes Status post wrist surgery left Family History Other No family history of adverse response to anesthesia Social History Preferred Language: Somali Communication Ability: Effective 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 and A total of 6 systems reviewed and were otherwise negative Physical Exam Vital Signs Vital Signs - 24 hr 01/07/20 09:33 01/07/20 11:27 Temperature 36.9 C Temperature Source Oral Pulse Rate 68 Pulse Rate [Apical] 67 Pulse Rhythm Regular Pulse Rhythm [Apical] Regular Pulse Strength Normal Pulse Strength [Apical] Normal Respiratory Rate 17 17 Respiratory Effort / Characteristics Non-Labored Spontaneous Non-Labored Spontaneous Respiratory Depth Normal Normal Respiratory Pattern Regular Regular Blood Pressure 161/94 H Blood Pressure [Right Arm] 126/78 Blood Pressure Mean 116 Blood Pressure Mean [Right Arm] 94 Pulse Oximetry 98 96 Oxygen Delivery Method Room Air Room Air Sepsis Recent Fever Within 48 Hours No Sepsis New/Unexplained Change in Mental Status No Sepsis Action Taken by Nursing No Action Required GENERAL: Well appearing, well nourished, NAD, non-toxic. EYE EXAM: Normal conjunctiva. PERRL, no anisocoria and EOM's grossly intact w/o pain. OROPHARYNX: Moist mucous membranes. Grossly normal dentition. NECK: Supple, no nuchal rigidity, no adenopathy, non-tender. No signs of meningismus. LUNGS: Clear to auscultation. Normal chest wall mechanics. HEART: NSR, no MRG. ABDOMEN: Abdomen soft, non-tender, normo-active bowel sounds, no masses, no rebound or guarding. SKIN: No rashes and no bruising. UPPER EXTREMITIES: Upper extremities are grossly normal. LOWER EXTREMITIES: No pitting edema. No calf pain. Left lower extremity has soft compartments, NVI distally, decreased ROM of hip and knee, good flexion and extension at the ankle, no sensory deficits. Left knee with no anterior or posterior reproducible pain or swelling, no pain with varus or valgus stress. NEURO EXAM: A&O x3, cranial nerves II-XII grossly intact, normal speech, moves all 4 extremities on command w/o issue. Course Course 0942: The patient was evaluated in room A11 and a complete history and physical were performed. 1047: I reevaluated the patient. She is resting comfortably. 1120: The patient did not do well on the ambulatory trial. I will have case management speak with her. 1145: I reevaluated the patient. She does not feel she can go home. I will speak with the hospital medicine team. 1200: I discussed the patients case with Kiesha Matias PA-C, for Dr. Ko, [facility] Hospitalist. The patient will be further evaluated. Administered Medications Discontinued Medications Acetaminophen (Tylenol) 650 mg PO NOW STA Stop: 01/07/20 09:50 Last Admin: 01/07/20 10:37 Dose: 650 mg Documented by: [id number] Ibuprofen (Advil) 400 mg PO NOW STA Stop: 01/07/20 09:50 Last Admin: 01/07/20 10:36 Dose: 400 mg Documented by: [id number] Lidocaine (Lidoderm 5%) 1 patch TD NOW STA Stop: 01/07/20 09:50 Last Admin: 01/07/20 10:37 Dose: 1 patch Documented by: [id number] Tramadol HCl (Ultram) 50 mg PO NOW STA Stop: 01/07/20 09:50 Last Admin: 01/07/20 10:37 Dose: 50 mg Documented by: [id number] Medical Decision Making Medical Records Attestation: I reviewed the patient's medical records. Home Medications Current Medication List: was personally reviewed by me Laboratory Data Result diagrams: 01/07/20 12:47 01/07/20 12:47 Lab Results 01/07/20 01/07/20 Range/Units 12:47 12:47 WBC 3.43 L (4.8-10.8) K/uL RBC 4.35 (4.2-5.4) M/uL Hgb 13.1 (12.0-16.0) g/dL Hct 39.5 (37-47) % MCV 90.8 (80-100) fL MCH 30.1 (25-34) pg MCHC 33.2 (32-36) g/dL RDW Std Deviation 44.9 (36.4-46.3) fL RDW Coeff of Nissa 13.6 (11.5-14.5) % Plt Count 150 (130-400) K/uL MPV 9.7 (7.4-10.4) fL Immature Gran % (Auto) 0.0 % Neut % (Auto) 70.8 % Lymph % (Auto) 19.2 % [place] % (Auto) 8.2 % Eos % (Auto) 1.5 % Baso % (Auto) 0.3 % Immature Gran # (Auto) 0.00 (0.00-0.02) K/uL Neut # (Auto) 2.43 (1.4-6.5) K/uL Lymph # (Auto) 0.66 L (1.2-3.4) K/uL [place] # (Auto) 0.28 (0.11-0.59) K/uL Eos # (Auto) 0.05 (0-0.5) K/uL Baso # (Auto) 0.01 (0-0.2) K/uL Sodium 141 (136-145) mmol/L Potassium 4.0 (3.5-5.1) mmol/L Chloride 110 H (98-107) mmol/L Carbon Dioxide 26 (21-32) mmol/L Anion Gap 5.0 (3-11) BUN 15 (7-18) mg/dl Creatinine 0.90 (0.6-1.2) mg/dl Est Cr Clr Drug Dosing 44.3 ml/min Est GFR ( Amer) 72.0 Est GFR (Non-Af Amer) 62.1 BUN/Creatinine Ratio 17.0 (10-20) Glucose 87 (70-99) mg/dl Calcium 9.0 (8.5-10.1) mg/dl C-Reactive Protein 0.29 (0-0.29) mg/dl Imaging Data My Impression: Radiology results as stated below per my review and the radiologist's interpretation: XR femur LT 2V routine CLINICAL HISTORY: pain COMPARISON: None. DISCUSSION: The bones and joint spaces appear intact. There is no evidence of f racture, dislocation or bony disease. There is no evidence for soft tissue swelling. IMPRESSION: Negative study. ACT 112: Negative or not required by law. The above report was generated using voice recognition software. It may contain grammatical, syntax or spelling errors. Electronically signed by: Donny Marques M.D. 01/07/2020 10:41 AM XR hip LT 2V w pelvis CLINICAL HISTORY: pain in posterior thigh; neg US COMPARISON: None. DISCUSSION: The bones and joint spaces appear intact. There is no evidence of fracture, dislocation or bony disease. There is no evidence for soft tissue swelling. IMPRESSION: Negative study. ACT 112: Negative or not required by law. The above report was generated using voice recognition software. It may contain grammatical, syntax or spelling errors. Electronically signed by: Donny Marques M.D. 01/07/2020 10:40 AM XR knee LT 3V CLINICAL HISTORY: pain pain COMPARISON: None. DISCUSSION: The bones and joint spaces appear intact. There is no evidence of fracture, dislocation or bony disease. There is no evidence for soft tissue swelling. IMPRESSION: Negative study. ACT 112: Negative or not required by law. The above report was generated using voice recognition software. It may contain grammatical, syntax or spelling errors. Electronically signed by: Donny Marques M.D. 01/07/2020 10:40 AM XR tibia fibula LT 2V CLINICAL HISTORY: pain COMPARISON: None. DISCUSSION: The bones and joint spaces appear intact. There is no evidence of fracture, dislocation or bony disease. There is no evidence for soft tissue swelling. IMPRESSION: Negative study. ACT 112: Negative or not required by law. The above report was generated using voice recognition software. It may contain grammatical, syntax or spelling errors. Electronically signed by: Donny Marques M.D. 01/07/2020 10:42 AM Radiologist's Impression: VASCULAR DUPLEX VENOUS LE UNILATERAL Performed at [facility] IMPRESSION Patent left lower extremity venous system. No evidence of acute deep venous thrombosis of the left lower extremity. Dr. Adalberto Juan MD Blood Pressure Blood Pressure Findings: Elevated blood pressure Blood Pressure Disposition: further management by hospitalist DEVONTE De Souza The patient is a 74 year old white female w/ PMHx of kidney stones who presents to the ED w/ CC of left leg pain that began 3 weeks ago. Differential diagnosis: Etiologies such as fracture, dislocation, neurovascular compromise, compartment syndrome, soft tissue injury, as well as others were entertained. Patient was seen and evaluated at the bedside. The patient was coming in with complaints of left lower extremity discomfort and associated difficulty with ambulatory dysfunction. The patient reportedly has had some increasing difficulty with walking and ambulation over the last several weeks did have a recent outpatient DVT ultrasound completed which is unremarkable. The patient has nonspecific but all over leg pain. The patient has good flexion-extension of the ankle but decreased in the hip as well as left knee. The patient did have plain films completed was given medications. The patient's plain films were unremarkable. I discussed that the patient could have a tendinopathy radiculopathy or ligamentous issue but the patient does not appear to have joint laxity within the knee at this time. I did discuss that we would try to obtain follow-up with orthopedics and the potential for PT and OT. The patient was placed in a knee immobilizer but was unable to walk. Patient may have had a hamstring tear. The patient was subsequently seen by the family caseworker was told that the patient would require an observation stay for PT and OT and rehab. Patient was admitted to the medicine service for PT OT and rehab referral. Blood work was ordered saline lock and lab collection orders were also placed. Impression & Plan Lower extremity pain, left, Ambulatory dysfunction Discharge Plan Visit Data *Final* Discharge Date/Time: 01/07/20 13:46 Chief Complaint: Leg Injury/Pain Stated Complaint: L leg pain ED Provider: Shane Castellanos Discharge Problem: Lower extremity pain, left, Ambulatory dysfunction Patient Disposition: Admitted As Inpatient Discharge Instructions Interventions: ED Discharge Assessment Last Done: 01/07/20 13:46 The jensibe's documentation has been prepared under my direction and personally reviewed by me in its entirety. I confirm that the note above accurately reflects all work, treatment, procedures, and medical decision making performed by me.
--- NOTE | 2020-01-07 15:42 | Orthopedic Consultation ---
Date of Consultation January 07, 2020 Assessment & Plan (1) Lower extremity pain, left: Initially I thought this might be coming from her back, however, after examination it seems to be coming from her knee. All of her pains located in her knee and I can even bend her knee 15 degrees without it being in severe pain. She has no effusion of her knee. She is unable to put weight on it at this time. I am not sure if she ruptured a Brooks's cyst or if she simply tore the posterior root of her medial meniscus. In any case, she is unable to put any weight on her leg at this time and unable to return home. I would like to get an MRI of her left knee to rule out any internal derangement. I also ordered a Kenalog injection to bedside in case we decide to go that route after the MRI. I will follow-up with her after the MRI. Until then, we will continue with a knee immobilizer. Present on Admission?: Yes History of Present Illness Reason for Consultation: Left knee pain Attending Physician: Matt Ko MD History of Present Illness Anayeli is a pleasant 74-year-old female who I did a right rotator cuff repair on over a year ago. She is done very well with that. She was in her usual state of health until about a week ago when she began having increasing left knee pain. She did see her primary care physician about it. Most the pain was located in the back of her leg. She had an ultrasound of her left leg which was essentially negative. Unfortunately last night she felt a pop in the back of her knee. She says it was excruciatingly painful. She is unable to bear any weight on her left leg. She was brought to the emergency room. Radiographs of the left hip and left knee were negative. She is unable to ambulate or return home at this time. She is currently in a knee immobilizer and her knee feels okay as long sits in full extension, however, as soon as it is moved or soon as a weight is applied it is very painful. She was admitted to the hospital and orthopedics was consulted to evaluate and treat. Allergies Allergy/AdvReac Type Severity Reaction Status Date / Time oxycodone Allergy Intermediate fainted Unverified 01/07/20 10:43 nitrofurantoin Allergy Mild ITCHY Verified 12/22/18 07:41 PENICILLIN Allergy Severe HIVES Uncoded 12/22/18 07:41 "EXTERNAL AND INTERNAL" Home Medications Home Medications Medication Instructions Recorded Confirmed Type dorzolamide 1 drp OPR BID 12/08/18 01/07/20 History Patient History Medical History (Updated 01/07/20 @ 13:20 by Kiesha Matias PA-C) Kidney stones Nausea and vomiting after administration of anesthetic agent Ocular hypertension of right eye Surgical History History of colonoscopy History of eye surgery right eye x2 "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" History of repair of right rotator cuff History of tonsillectomy and adenoidectomy History of tooth extraction all upper teeth and couple of bottom S/P LASIK (laser assisted in situ keratomileusis) of both eyes Status post wrist surgery left Family History Other No family history of adverse response to anesthesia Social History Preferred Language: Azeri Communication Ability: Effective Binder Technician Required: No Beliefs That Will Affect Care: None marital status: Current Living Situation: Spouse Current Living Situation Comment: Home with current occupational status: retired Other Information That Helps Us Care for You: No Feels Safe at Home: Yes Smoking Status: Never smoker Do You Dip or Chew Tobacco: No ; Second Hand Exposure: No ; Tobacco Cessation Education Requested by Patient: No Hx Alcohol Use: No Hx Substance Use: No Review of Systems Review of Systems: All systems reviewed & are unremarkable except as noted in HPI & below Physical Exam Constitutional: WD/WN, vitals as above Eyes: PERRL, conjunctivae normal, anicteric sclerae ENMT: external ear and nose normal, oropharynx normal Neck: trachea midline, no thyromegaly Respiratory: normal respiratory effort Cardiovascular: RRR, no murmur, no edema Gastrointestinal (Abdomen): normal bowel sounds, soft, nontender, no hepatosplenomegaly Musculoskeletal: On physical examination of the left knee, there are no abrasions lesions or lacerations of the skin. There is no effusion. She feels okay with her leg out in full extension. I tried to bend her knee about 15 degrees and she had severe pain in the posterior aspect of her knee. She also had pain to deep palpation in the left calf region. She had mild pain with her left knee with logrolling. She has active dorsiflexion and plantarflexion of her left ankle. Sensation is otherwise intact throughout. Psychiatric: A+Ox3, euthymic affect Results & Data ([facility]) Vital Signs (Past 12 Hours) Vital Signs Temp Pulse Pulse Resp BP BP Pulse Ox 01/07/20 14:30 38.6 C H 56 L 18 147/78 H 01/07/20 14:20 36.6 C 56 L 16 147/78 H 96 01/07/20 13:46 60 17 149/81 H 96 01/07/20 11:27 67 17 126/78 96 01/07/20 09:33 36.9 C 68 17 161/94 H 98 Diagnostic Findings X-rays of the left hip are reviewed as well as radiology interpretation and the x-ray showed mild osteoarthritis but are otherwise negative. X-rays of the knee were reviewed personally as well as radiology interpretation and the x-rays were essentially negative. PG Care Time/CCT Total # of Minutes Spent Total Time Spent with Patient: Total time spent is greater than 50% in coordination of care (as documented) at patient's floor/unit and/or counseling patient: Coding Level of Care Code 02835 Inpt Consult Level 3 Diagnoses Lower extremity pain, left M79.605
[2020-01-07] MEDS: ACETAMINOPHEN 325 MG TAB PO PRN (16:20)
[2020-01-07 17:16] LABS: Lyme Ab IgG w/WB Rflx Negative (Negative); Lyme Ab IgM w/WB Rflx Negative (Negative)
--- NOTE | 2020-01-07 17:26 | Ultrasound Report ---
LEFT LOWER EXTREMITY VENOUS DOPPLER HISTORY: worsening LLE pain, pain in left popliteal fossa COMPARISON STUDY: None. FINDINGS: There is normal compressibility, flow, and augmentation within the left lower extremity abi p venous system. IMPRESSION: No DVT within the left lower extremity. ACT 112: Negative or not required by law. Electronically signed by: Michael Griggs M.D. 01/07/2020 5:25 PM
--- NOTE | 2020-01-07 18:51 | Magnetic Resonance Report ---
LEFT KNEE MRI HISTORY: Severe left knee pain possible ruptured Brooks's cyst COMPARISON STUDY: Left knee 01/07/2020. TECHNIQUE: Multiplanar multisequence MRI of the left knee was performed according to standard [facility] ent protocol without the use of contrast. FINDINGS: Menisci: The lateral meniscus is intact. Focal complex tear at the posterior root of the medial menis cus. This is best seen on coronal image 20 of 28. Ligaments: The anterior and posterior cruciate ligaments are intact. The medial and lateral collatera l ligaments are normal in appearance. Extensor mechanism: Mild increased T2 signal within the distal quadriceps tendon. This suggests a mil d tendinopathy. The patellar ligament appears intact. Articular cartilage and bone: Mild cartilage thinning and fraying within the medial femoral condyle. There is also full-thickness cartilage loss within the median ridge of the patella and lateral patell ar facet. There is moderate to severe cartilage space narrowing within the medial patellar facet. Joint effusion: Small. Soft tissues: Small popliteal cyst measuring approximately 4.0 x 2.2 x 1.5 cm. Trace fluid inferior to the popliteal cyst could represent a partially ruptured cyst. IMPRESSION: 1. Focal complex tear at the posterior root of the medial meniscus. 2. Mild distal quadriceps tendinopathy. 3. Small joint effusion. 4. Small popliteal cyst. There is trace fluid inferior to the popliteal cyst which could represent a partially ruptured cyst. 5. Degenerative changes as described above most pronounced at the patellofemoral compartment. ACT 112: Negative or not required by law. Electronically signed by: Mihcael Griggs M.D. 01/07/2020 6:49 PM
[2020-01-07] MEDS: DORZOLAMIDE HCL 2% OPH SOLN 10 ML BTL OPR SCH (20:33)
[2020-01-08 05:54] LABS: Basophils # (auto) 0.01 K/uL (0-0.2); Basophils % (auto) 0.3 %; Eosinophils # (auto) 0.07 K/uL (0-0.5); Hematocrit (blood only) 37.2 % (37-47); Hemoglobin 12.3 g/dL (12.0-16.0); Lymphocytes # (auto) 0.77 K/uL (1.2-3.4); Lymphocytes % (auto) 21.9 %; Mean Corpuscular Hemoglobin 29.9 pg (25-34); Mean Corpuscular Hgb Conc 33.1 g/dL (32-36); Mean Corpuscular Volume 90.5 fL (80-100); Mean Platelet Volume 10.1 fL (7.4-10.4); Monocytes # (auto) 0.37 K/uL (0.11-0.59); Monocytes % (auto) 10.5 %; Neutrophils # (auto) 2.29 K/uL (1.4-6.5); Neutrophils % (auto) 65.3 %; Platelet Count 137 K/uL (130-400); RDW Coefficient of Variation 13.8 % (11.5-14.5); RDW Standard Deviation 45.7 fL (36.4-46.3); Red Blood Count 4.11 M/uL (4.2-5.4); White Blood Count 3.51 K/uL (4.8-10.8)
[2020-01-08 06:32] LABS: Albumin Level 3.2 gm/dl (3.4-5.0); BUN Creatinine Ratio 21.9 (10-20); Calcium 8.9 mg/dl (8.5-10.1); Creatinine Clr Calc Pharmacy 50.3 ml/min; Potassium 3.9 mmol/L (3.5-5.1)
[2020-01-08 06:35] LABS: Bilirubin,Total 0.5 mg/dl (0.2-1); Globulin 3.3 gm/dl (2.5-4.0); Total Protein 6.5 gm/dl (6.4-8.2)
[2020-01-08] MEDS: DORZOLAMIDE HCL 2% OPH SOLN 10 ML BTL OPR SCH ×2 (07:52→20:22)
--- NOTE | 2020-01-08 13:15 | Hospitalist Progress Note ---
Date of Service January 08, 2020 Assessment & Plan (1) Lower extremity pain, left: Pain occurs with movement of left knee especially flexion of knee MRI did report focal complex tear at the posterior root of the medial meniscus, small joint effusion, possible partially ruptured popliteal cyst Will follow up ortho recommendations Pain control as needed (2) Ambulatory dysfunction: Due to #1 above Will get PT eval once ortho evaluates (3) Ocular hypertension of right eye: Continue outpatient Cosopt drops - per last ophtho note in Oct, condition is stable DVT ppx Due to reduced mobility at this time and Lamar score of 4, will do hep sq Admission and Anticipated Discharge Date Admission Date: January 07, 2020 Subjective Patient seen and examined. Still reports left knee pain especially with flexion. Still not able to ambulate Denies any other symptoms Physical Exam Constitutional: well developed, well nourished and + well hydrated; no acute distress and not ill appearing Eyes: PERRL, conjunctivae normal, anicteric sclerae ENMT: external ear and nose normal, oropharynx normal Respiratory: normal respiratory effort, lungs clear to auscultation Cardiovascular: RRR, no murmur, no edema Gastrointestinal (Abdomen): normal bowel sounds, soft, nontender, no hepatosplenomegaly Musculoskeletal: Left knee in brace. No tenderness on palpation erythema swelling Significant pain when patient attempted flexion Neurologic: PERRL, EOMI, accommodation nl, no face palsy, no dysarthria Psychiatric: A+Ox3, euthymic affect Results & Data ([facility]) Vital Signs (Past 12 Hours) Vital Signs Temp Pulse Resp BP Pulse Ox 01/08/20 07:32 36.6 C 64 16 137/78 98 Laboratory Results Abnormal lab results 01/08/20 01/08/20 Range/Units 05:36 05:36 WBC 3.51 L (4.8-10.8) K/uL RBC 4.11 L (4.2-5.4) M/uL Lymph # (Auto) 0.77 L (1.2-3.4) K/uL Chloride 110 H (98-107) mmol/L BUN 19 H (7-18) mg/dl BUN/Creatinine Ratio 21.9 H (10-20) AST 9 L (15-37) U/L ALT 8 L (12-78) U/L Albumin 3.2 L (3.4-5.0) gm/dl Diagnostic Findings Left Knee MRI 1. Focal complex tear at the posterior root of the medial meniscus. 2. Mild distal quadriceps tendinopathy. 3. Small joint effusion. 4. Small popliteal cyst. There is trace fluid inferior to the popliteal cyst which could represent a partially ruptured cyst. 5. Degenerative changes as described above most pronounced at the patellofemoral compartment.
[2020-01-08] MEDS ORDERED: TRAMADOL HCL 50 MG TABLET PO PRN (17:01)
[2020-01-08] MEDS ORDERED: Nursing to Pharmacy Communication ONE (17:24)
[2020-01-08] MEDS: HEPARIN SOD 5,000 UNIT/0.5 ML VIAL SQ SCH (20:22)
[2020-01-08] MEDS: ACETAMINOPHEN 325 MG TAB PO PRN (21:14)
[2020-01-09] MEDS: HEPARIN SOD 5,000 UNIT/0.5 ML VIAL SQ SCH ×3 (05:27→21:32)
--- NOTE | 2020-01-09 06:21 | Orthopedic Progress Note ---
Date of Service January 09, 2020 Assessment & Plan (1) Ruptured Bakers cyst: At this point I think it is a ruptured Brooks's cyst in the posterior aspect of her knee. There is nothing going on within the joint that should prevent her from ambulating. She can be seen by physical therapy today for ambulation and range of motion exercises. I would like them to work on bending her knee and work on ambulation as well as going up and down stairs. She does not need the knee immobilizer, however, she can wear in bed if she is more comfortable. She is orthopedically stable for discharge today if she does okay with physical therapy. I can follow her up in the office in 2 weeks. My office phone number is [phone]. Present on Admission?: Yes Subjective Anayeli was seen and examined at bedside this morning. She still in some pain in the back of her left knee. It is improved from where it was on Wednesday. She still in the knee immobilizer. She has not been ambulating much on it. She has no new complaints. Physical Exam Musculoskeletal: On physical examination of the left knee, there is a knee immobilizer in place. She has no effusion of the left knee. Most of her pain is located along the posterior aspect of the knee and extends down the back of her left calf. Results & Data ([facility]) Vital Signs (Past 12 Hours) Vital Signs Temp Pulse Resp BP Pulse Ox 01/08/20 23:25 36.6 C 64 16 120/71 97 Diagnostic Findings MRI images reviewed by myself in the office today with radiology interpretation do show a ruptured Brooks's cyst in the posterior aspect of her knee. There is a very small posterior meniscus tear as well. PG Care Time/CCT Total # of Minutes Spent Total Time Spent with Patient: Total time spent is greater than 50% in coordination of care (as documented) at patient's floor/unit and/or counseling patient: Coding Level of Care Code 25146 Subseq Hosp Care Lvl 3 Diagnoses Ruptured Bakers cyst M66.0
[2020-01-09 06:59] LABS: Hemoglobin 13.1 g/dL (12.0-16.0); Mean Corpuscular Hemoglobin 30.1 pg (25-34); Mean Corpuscular Hgb Conc 33.6 g/dL (32-36); Mean Corpuscular Volume 89.7 fL (80-100); Mean Platelet Volume 9.9 fL (7.4-10.4); Platelet Count 137 K/uL (130-400); RDW Coefficient of Variation 13.5 % (11.5-14.5); RDW Standard Deviation 44.4 fL (36.4-46.3); Red Blood Count 4.35 M/uL (4.2-5.4); White Blood Count 3.21 K/uL (4.8-10.8)
[2020-01-09] MEDS: DORZOLAMIDE HCL 2% OPH SOLN 10 ML BTL OPR SCH ×2 (07:25→21:32)
[2020-01-09] MEDS: ACETAMINOPHEN 325 MG TAB PO PRN (07:30)
[2020-01-09 07:33] LABS: BUN Creatinine Ratio 21.1 (10-20); Calcium 9.1 mg/dl (8.5-10.1); Creatinine Clr Calc Pharmacy 52.1 ml/min; Est GFR (African American) 76.1; Est GFR (Non-African American) 65.6; Potassium 3.9 mmol/L (3.5-5.1)
--- NOTE | 2020-01-09 14:20 | Hospitalist Progress Note ---
Date of Service January 09, 2020 Assessment & Plan (1) Ruptured Bakers cyst: (2) Lower extremity pain, left: Pain occurs with movement of left knee especially flexion of knee MRI did report focal complex tear at the posterior root of the medial meniscus, small joint effusion, possible partially ruptured popliteal cyst Ortho evaluated (3) Ambulatory dysfunction: Due to #1 above Near syncopal episode Likely related to tramadol versus vasovagal Had received tramadol a few hours before PT and patient is opioid naive No complaints at the time of my evaluation except for pain. No focal weakness. Orthostatic vital signs negativeblood pressure was 109/65 with pulse rate of 65 and oxygen saturation of 96% on room air while supine, blood pressure was 116/72, pulse rate of 65 and oxygen saturation of 96% while sitting Tramadol was discontinued. Continue Tylenol and ibuprofen as needed for pain management We will monitor overnight PT will reassess in a.m. to determine PT needs (4) Ocular hypertension of right eye: Continue outpatient Cosopt drops - per last ophtho note in Oct, condition is stable DVT ppx hep sq Admission and Anticipated Discharge Date Admission Date: January 07, 2020 Subjective Patient seen and examined. Still reports left knee pain. Patient was reported to be walking with PT when she had a near syncopal episode. Per RN and patient, she did not lose consciousness but felt faint and dizzy. Had to be lowered to the floor and taken back to the room. Blood pressure at the time was 84/54. By the time I was evaluating the patient, she denied any dizziness, headache, palpitations, blurred vision, chest pain, shortness of breath. She still reports pain in the left knee especially in the back and the side Denies any other symptoms Physical Exam Constitutional: well developed and + well hydrated; no acute distress Eyes: PERRL, conjunctivae normal, anicteric sclerae ENMT: external ear and nose normal, oropharynx normal Respiratory: normal respiratory effort, lungs clear to auscultation Cardiovascular: RRR, no murmur, no edema Gastrointestinal (Abdomen): normal bowel sounds, soft, nontender, no hepatosplenomegaly Musculoskeletal: Left knee: No tenderness on palpation erythema swelling Some pain with left knee flexion Neurologic: PERRL, EOMI, accommodation nl, no face palsy, no dysarthria Psychiatric: A+Ox3, euthymic affect Results & Data ([place]) Vital Signs (Past 12 Hours) Vital Signs Temp Pulse Resp BP Pulse Ox 01/09/20 13:55 51 L 14 154/138 H 98 01/09/20 07:08 36.6 C 62 16 143/80 H 97
[2020-01-09] MEDS ORDERED: IBUPROFEN 200 MG TAB PO PRN (14:28)
[2020-01-10] MEDS: HEPARIN SOD 5,000 UNIT/0.5 ML VIAL SQ SCH ×2 (05:55→13:10)
[2020-01-10] MEDS: DORZOLAMIDE HCL 2% OPH SOLN 10 ML BTL OPR SCH (05:58)
[2020-01-10 08:46] LABS: Mean Corpuscular Hemoglobin 29.8 pg (25-34); Mean Corpuscular Hgb Conc 33.3 g/dL (32-36); Mean Corpuscular Volume 89.4 fL (80-100); Mean Platelet Volume 9.9 fL (7.4-10.4); Platelet Count 139 K/uL (130-400); RDW Coefficient of Variation 13.6 % (11.5-14.5); RDW Standard Deviation 44.5 fL (36.4-46.3); Red Blood Count 4.36 M/uL (4.2-5.4); White Blood Count 4.17 K/uL (4.8-10.8)
[2020-01-10 09:10] LABS: BUN Creatinine Ratio 24.5 (10-20); Calcium 9.4 mg/dl (8.5-10.1); Creatinine Clr Calc Pharmacy 50.9 ml/min; Est GFR (Non-African American) 63.8; Potassium 3.7 mmol/L (3.5-5.1)
--- NOTE | 2020-01-10 15:01 | Hospitalist Progress Note ---
Date of Service January 10, 2020 Assessment & Plan (1) Ruptured Bakers cyst: (2) Ambulatory dysfunction: (3) Lower extremity pain, left: Pain occurs with movement of left knee especially flexion of knee MRI did report focal complex tear at the posterior root of the medial meniscus, small joint effusion, possible partially ruptured popliteal cyst Doppler of LLE showed no DVT within the left lower extremity. Continue PT/OT Ortho on board recommended to continue with ambulation and range of motion exercises. No need for the knee immobilizer, however, she can wear in bed if she is more comfortable as per ortho. Stable for ortho standpoint to discharge home Follow her up with ortho in the office in 2 weeks, please call to schedule for the appointment [phone]. (4) Ocular hypertension of right eye: Continue outpatient Cosopt drops - per last ophtho note in Oct, condition is stable Near Syncope Likely related to tramadol versus vasovagal Had received tramadol a few hours before PT and patient is opioid naive No focal neuro deficit on exam resolved DVT ppx hep sq Admission and Anticipated Discharge Date Admission Date: January 09, 2020 Subjective Pt was seen and examined Lying in bed with no distress Pt said that she feels much better She said that pain improves in the left LE She said that she is able to walk and bend her knee now Denies any chest pain, palpitation and SOB Physical Exam Physical Exam: General- No acute distress Head- atraumatic Eyes- PERRL, EOMI, ENT- oropharynx clear Neck- supple, no JVD Lungs- clear to auscultation Heart- regular rhythm; no murmur Abdomen- normal bowel sounds, soft, nontender Extremities- no calf tenderness Neuro- alert, oriented x 3; PERRL, EOMI; no facial palsy; no dysarthria Skin- warm & dry Results & Data ([facility]) Vital Signs (Past 12 Hours) Vital Signs Temp Pulse Resp BP Pulse Ox 01/10/20 07:46 36.7 C 65 14 138/78 96
--- NOTE | 2020-01-13 07:32 | Discharge Summary ---
Date of Service January 10, 2020 Admission HPI Per Admitting Provider This is a 74 y/o female with a PMH of right rotator cuff surgery who presents to the ED today with progressive LLE pain and resultant ambulatory dysfunction. Pt reports a somewhat insidious onset of symptoms, starting with left lower extremity discomfort sometime in November. Initially symptoms were mild, "like a tendon was tight" so she tried stretching exercises to help. Over the past 4-5 days, the pain has been worsening such that she is using a cane to help her walk but "using it is a prop while I drag my leg along" as the symptoms are worse with weight bearing. She denies any numbness or tingling, no sensation that the knee or leg is going to give out on her. She denies any specific injury or fall that incited the symptoms. She was seen in her PCP office for these symptoms on Wednesday (two days ago) and had a LLE duplex that was negative for DVT, no Brooks's cyst or other abnormalities noted in report. She tried ice for symptoms without relief. Has not tried heat. She has been using two Aleve up to a couple times a day for pain with only partial relief. Last night, she attempted to turn over in bed and felt a sharp pain and heard a pop in her left knee. Since then, the pain in the back of the left knee has been significantly worse and she is unable to bear weight, so she came to the ED today. In the ED, x-rays were negative but patient failed a ambulatory trial so she has been referred for admission for PT/OT evaluation, orthopedic evaluation, and potential rehab placement pending these evaluations. Admission Exam Per Admitting Provider Constitutional: WD/WN, vitals as above no acute distress Eyes: PERRL, conjunctivae normal, anicteric sclerae ENMT: external ear and nose normal, oropharynx normal Neck: trachea midline Respiratory: does not use accessory muscles Auscultation: lungs clear to auscultation bilaterally; no rales, no rhonchi and no wheezes Cardiovascular: regular rate and regular rhythm Heart Sounds: no gallop, no murmur and no cardiac rub Vessels: no JVD and no carotid bruit Extremities: normal capillary refill; no pedal edema Gastrointestinal:Inspection/Auscultation: normal bowel sounds; abdomen not distended Percussion/Palpation: abdomen soft; abdomen nontender Musculoskeletal: normocephalic, head atraumatic and neck supple Extremities: no cyanosis and no clubbing Left knee flexion limited to ~20 degrees due to pain. RLE strength 5/5, LLE strength 4/5 (pt reports mild pain with all movements except plantar flexion) No significant lower extremity edema No palpable mass in left popliteal fossa. +tenderness to palpation of left medial malleolus, left popliteal fossa Skin: no rashes, warm and dry no jaundice Neurologic: no focal motor deficits Speech / Cognition: normal speech Sensation to light touch grossly intact bilateral UE and LE Psychiatric: A+Ox3, euthymic affect Principal Diagnosis (1) Ruptured Bakers cyst: (2) Ambulatory dysfunction: (3) Lower extremity pain, left: (4) Ocular hypertension of right eye: (5) Near Syncope Discharge Exam General- No acute distress Head- atraumatic Eyes- PERRL, EOMI, ENT- oropharynx clear Neck- supple, no JVD Lungs- clear to auscultation Heart- regular rhythm; no murmur Abdomen- normal bowel sounds, soft, nontender Extremities- no calf tenderness Neuro- alert, oriented x 3; PERRL, EOMI; no facial palsy; no dysarthria Skin- warm & dry Discharge Data Allergies Allergy/AdvReac Type Severity Reaction Status Date / Time Penicillins Allergy Severe hives Verified 01/08/20 17:17 (external & internal) nitrofurantoin Allergy Mild ITCHY Verified 12/22/18 07:41 oxycodone AdvReac Intermediate fainted Unverified 01/08/20 17:17 Consultations 01/07/20 12:01 ED Decision to Admit Stat 01/07/20 14:09 Consult Case Management - Discharge Planning Routine Consult Orthopedic Surgery Routine Ordered Studies 01/07/20 15:42 MR knee LT wo con Routine 01/07/20 16:02 US venous doppler LE LT Routine LEFT LOWER EXTREMITY VENOUS DOPPLER HISTORY: worsening LLE pain, pain in left popliteal fossa COMPARISON STUDY: None. FINDINGS: There is normal compressibility, flow, and augmentation within the left lower extremity deep venous system. IMPRESSION: No DVT within the left lower extremity. ACT 112: Negative or not required by law. Electronically signed by: Michael Griggs M.D. 01/07/2020 5:25 PM Dictated: 01/07/20 1725 Transcribed: 01/07/20 172 LEFT KNEE MRI HISTORY: Severe left knee pain possible ruptured Brooks's cyst COMPARISON STUDY: Left knee 01/07/2020. TECHNIQUE: Multiplanar multisequence MRI of the left knee was performed according to standard department protocol without the use of contrast. FINDINGS: Menisci: The lateral meniscus is intact. Focal complex tear at the posterior root of the medial meniscus. This is best seen on coronal image 20 of 28. Ligaments: The anterior and posterior cruciate ligaments are intact. The medial and lateral collateral ligaments are normal in appearance. Extensor mechanism: Mild increased T2 signal within the distal quadriceps tendon. This suggests a mild tendinopathy. The patellar ligament appears intact. Articular cartilage and bone: Mild cartilage thinning and fraying within the medial femoral condyle. There is also full-thickness cartilage loss within the median ridge of the patella and lateral patellar facet. There is moderate to severe cartilage space narrowing within the medial patellar facet. Joint effusion: Small. Soft tissues: Small popliteal cyst measuring approximately 4.0 x 2.2 x 1.5 cm. Trace fluid inferior to the popliteal cyst could represent a partially ruptured cyst. IMPRESSION: 1. Focal complex tear at the posterior root of the medial meniscus. 2. Mild distal quadriceps tendinopathy. 3. Small joint effusion. 4. Small popliteal cyst. There is trace fluid inferior to the popliteal cyst which could represent a partially ruptured cyst. 5. Degenerative changes as described above most pronounced at the patellofemoral compartment. ACT 112: Negative or not required by law. Electronically signed by: Michael Griggs M.D. 01/07/2020 6:49 PM Dictated: 01/07/20 1844 Transcribed: 01/07/20 1844 XR tibia fibula LT 2V CLINICAL HISTORY: pain COMPARISON: None. DISCUSSION: The bones and joint spaces appear intact. There is no evidence of fracture, dislocation or bony disease. There is no evidence for soft tissue swelling. IMPRESSION: Negative study. ACT 112: Negative or not required by law. The above report was generated using voice recognition software. It may contain grammatical, syntax or spelling errors. Electronically signed by: Donny Marques M.D. 01/07/2020 10:42 AM Dictated: 01/07/20 1041 Transcribed: 01/07/20 1041 XR knee LT 3V CLINICAL HISTORY: pain pain COMPARISON: None. DISCUSSION: The bones and joint spaces appear intact. There is no evidence of fracture, dislocation or bony disease. There is no evidence for soft tissue swelling. IMPRESSION: Negative study. ACT 112: Negative or not required by law. The above report was generated using voice recognition software. It may contain grammatical, syntax or spelling errors. Electronically signed by: Donny Marques M.D. 01/07/2020 10:40 AM Dictated: 01/07/20 1040 Transcribed: 01/07/20 1040 XR hip LT 2V w pelvis CLINICAL HISTORY: pain in posterior thigh; neg US COMPARISON: None. DISCUSSION: The bones and joint spaces appear intact. There is no evidence of fracture, dislocation or bony disease. There is no evidence for soft tissue swelling. IMPRESSION: Negative study. ACT 112: Negative or not required by law. The above report was generated using voice recognition software. It may contain grammatical, syntax or spelling errors. Electronically signed by: Donny Marques M.D. 01/07/2020 10:40 AM Dictated: 01/07/20 1040 Transcribed: 01/07/20 104 XR femur LT 2V routine CLINICAL HISTORY: pain COMPARISON: None. DISCUSSION: The bones and joint spaces appear intact. There is no evidence of fracture, dislocation or bony disease. There is no evidence for soft tissue swelling. IMPRESSION: Negative study. ACT 112: Negative or not required by law. The above report was generated using voice recognition software. It may contain grammatical, syntax or spelling errors. Electronically signed by: Donny Marques M.D. 01/07/2020 10:41 AM Dictated: 01/07/20 1041 Transcribed: 01/07/20 1041 Hospital Course (1) Ruptured Bakers cyst: (2) Ambulatory dysfunction: (3) Lower extremity pain, left: Pain occurs with movement of left knee especially flexion of knee MRI did report focal complex tear at the posterior root of the medial meniscus, small joint effusion, possible partially ruptured popliteal cyst Doppler of LLE showed no DVT within the left lower extremity. Continue PT/OT Ortho on board recommended to continue with ambulation and range of motion exercises. No need for the knee immobilizer, however, she can wear in bed if she is more comfortable as per ortho. Stable for ortho standpoint to discharge home Follow her up with ortho in the office in 2 weeks, please call to schedule for the appointment [phone]. (4) Ocular hypertension of right eye: Continue outpatient Cosopt drops - per last ophtho note in Oct, condition is stable Near Syncope Likely related to tramadol versus vasovagal Had received tramadol a few hours before PT and patient is opioid naive No focal neuro deficit on exam resolved DVT ppx hep sq Total Time Total Time Spent Total Time Spent (In Minutes): 35 minutes Total Time Includes: Examination of the Patient, Discharge Planning, Medication Reconciliation, Communication With Other Providers and Other Discharge Plan Discharge Items Patient Disposition: Home - Self-Care Reason For Visit: LLE PAIN Discharge Diagnosis: Ruptured Brooks cyst Activity: Resume your previous activity Activity Comment: And as per Physical therapist instructions Non-emergency contact: Primary Care Provider Call non-emergency contact if: you have any medication questions and your s ymptoms worsen Follow-up/Referrals: Essie Kruger MD [Primary Care Provider] - 01/16/20 10:45 am Diet: Regular Addtl Attending Provider Instructions: You came to the hospital complaining of worsening left knee pain and difficulty ambulating. You were evaluated with multiple imaging. You were managed for ruptured Brooks's cyst. You can take pain medication as needed. You can follow-up with Dr. Bear in the orthopedic clinic in 2 weeks. Please call to schedule for the follow up appointment. Office number is [phone] Follow up with your primary care provider Dr. Kruger in 1 week Fall precaution Do not drive or operate any machine after taking tramadol due to risk of dizziness and drowsiness. Pending Studies at Discharge: No Stand-Alone Forms: [employer], Smoking Cessation Medications and DC Order Prescriptions: New acetaminophen [Mapap (acetaminophen)] 325 mg Tablet 650 mg PO Q4H PRN (Reason: mild pain) Qty: 30 RF: 0 Continued dorzolamide 2 % Drops 1 drp OPR BID RF: 0 Discharge Orders: Discharge Order (Routine); Ordered 01/10/20 Ordered By: Ifeoma Henriquez/Other Patient Handouts: Cyst Brooks Popliteal Admission Data Admit Date/Time: 01/07/20 12:48 Attending Provider: Ifeoma Garcia Admit Provider: Matt Ko Primary Care Provider: Essie Kruger Other Providers: Matt Ko ; Silviano Bear ; Rizwana Hamlin I. Other Interventions: Discharge Summary Assessment (RN) Last Done: 01/10/20 15:36 DC Date/Time DO NOT enter until pt leaves facility: 01/10/20 17:05
== END 2020-01-10 17:05 | disposition home or self-care (01) | DRG 558 ==
LOC: 3W 09:28 → ED 09:28 → SUATTDRO 12:48 → 3W 13:46 → SUATTDRO 01-09 14:29